=== PATIENT | male | born 1955 | race African-American/Black ===

== ENCOUNTER 2018-02-12 10:11 | Emergency (ER) | payer SELFPAY ==
[~2018-02-12] VITALS: Ht 177.8 cm; Wt 108.9 kg
[2018-02-12] MEDS ORDERED: UNK B/P MED (10:21)
--- NOTE | 2018-02-12 10:26 | NUR ---
RECEIVED A 62 Y/O MALE PT VIA AMBULANCE , CONSCIOUS OX4, C/O ARM SORENESS AND WEAKNESS, PT CAME WITH A RT HAND PERIPHERAL LINE G 18, CONNECTED TO WEDDING COORDINATOR SHOWING SR.
[2018-02-12] MEDS ORDERED: IV NORMAL SALINE 1000 ML BAG IV ONE (10:30)
[2018-02-12 10:31] LABS: BASOPHILS % (AUTO) 0.5 % (0.0-2.0); EOSINOPHILS # (AUTO) 0.1 K/uL (0.0-0.7); EOSINOPHILS % (AUTO) 1.3 % (0.0-7.0); HEMATOCRIT 36.4 % (36.7-47.1); HEMOGLOBIN 12.2 g/dL (12.5-16.3); LYMPHOCYTES # (AUTO) 2.3 K/uL (20.0-40.0); LYMPHOCYTES % (AUTO) 33.2 % (20.5-51.5); MEAN CORPUSCULAR HEMOGLOBIN 33.2 uug (23.8-33.4); MEAN CORPUSCULAR HGB CONC 34 g/dL (32.5-36.3); MONOCYTES # (AUTO) 0.7 K/uL (2.0-10.0); MONOCYTES % (AUTO) 10.5 % (0.0-11.0); NEUTROPHILS # (AUTO) 3.8 K/uL (1.8-8.9); NEUTROPHILS % (AUTO) 54.5 % (38.5-71.5); RED BLOOD CELL COUNT(AUTO) 3.68 MIL/uL (4.06-5.63)
--- NOTE | 2018-02-12 10:32 | NUR ---
EKG DONE, BLOOD SAMPLE TAKEN BY CHECKERING MACHINE OPERATOR AND TAKEN TO LAB, PT HOOKED UP TO N/S VIA RT HAND LINE, AND CXR DONE
[2018-02-12 10:39] LABS: POTASSIUM 3.8 mmol/L (3.5-5.1)
[2018-02-12 10:40] LABS: PLATELET COUNT (AUTO) 77 K/uL (152-348)
--- NOTE | 2018-02-12 11:03 | NUR ---
SEEN BY MD, ORDERED FOR PATIENTS DISCHARGE AFTER COMPLETING HIS IVF.
[2018-02-12 11:33] VITALS: BP 122/64
--- NOTE | 2018-02-12 11:40 | NUR ---
PATIENT DISCHARGE TO HOME , WALKING , ALL LAB AND XRAY RESULTS GIVEN , INSTRUCTIONS ASLO GIVEN .
== END 2018-02-12 11:40 | disposition home or self-care (01) ==
LOC: ER 10:16
DX: T67.5XXA Heat exhaustion, unspecified, initial encounter (principal); R55 Syncope and collapse; N28.9 Disorder of kidney and ureter, unspecified; I10 Essential (primary) hypertension; X58.XXXA Exposure to other specified factors, initial encounter; Y93.89 Activity, other specified; Y92.89 Other specified places as the place of occurrence of the external cause; Y99.8 Other external cause status
CPT/HCPCS: 36415; 70030-TC; 71045; 85025; 93005; A4663; J7030